=== PATIENT | male | born 1950 | race Caucasian/White ===

== ENCOUNTER 2017-04-03 08:58 | Day surgery (SDC) | END 2017-04-03 15:28 | disposition home or self-care (01) | DX: D17.1 Benign lipomatous neoplasm of skin and subcutaneous tissue of trunk (principal); D17.0 Benign lipomatous neoplasm of skin and subcutaneous tissue of head, face and neck | CPT/HCPCS: 14301; 88307; J0690; J1100; J2250; J2270; J2405; J3010; J7999 ==